=== PATIENT | female | born 1985 | race Caucasian/White ===

== ENCOUNTER 2023-03-14 10:17 | Emergency (ER) | payer BC, OTHER ==
[2023-03-14] MEDS ORDERED: Lidocaine 1% MPF 2 ML VIAL ONE (11:23)
[2023-03-14] MEDS ORDERED: Lidocaine 1% (PF) 30 ML VIAL ONE (11:31)
[2023-03-14] MEDS ORDERED: HYDROcodone/Acetaminophen 5/325 mg Tablet ONE (13:52)
== END 2023-03-14 13:59 | disposition home or self-care (01) ==
LOC: ERS 10:17
DX: S61.210A Laceration without foreign body of right index finger without damage to nail, initial encounter (principal); W26.0XXA Contact with knife, initial encounter; F17.210 Nicotine dependence, cigarettes, uncomplicated
CPT/HCPCS: J2001